=== PATIENT | male | born 1940 | race Two or more races ===

== ENCOUNTER 2018-02-08 10:20 | Outpatient (CLI) | payer OTHER ==
[~2018-02-08 10:20] MED LIST: DOLOGESIC CAPLE1 TAB PO; ZITHROMAX500 MG PO
== END 2018-02-08 10:29 | disposition home or self-care (01) ==
LOC: SONOGRAMA 10:20
DX: E04.1 Nontoxic single thyroid nodule (principal)

== ENCOUNTER → 2018-06-03 | Outpatient (CLI) | payer OTHER | END | disposition home or self-care (01) | LOC: NUCLEAR 07:00 | DX: I20.9 Angina pectoris, unspecified (principal) | CPT/HCPCS: 78452; 93017; A9500 ==

== ENCOUNTER 2020-12-17 10:12 | Outpatient (CLI) | payer OTHER | END 2020-12-17 10:14 | disposition home or self-care (01) | LOC: NUCLEAR 10:12 | PROVIDERS: ATTEND Internal Medicine | DX: I11.9 Hypertensive heart disease without heart failure (principal); S46.201A Unspecified injury of muscle, fascia and tendon of other parts of biceps, right arm, initial encounter; T82.855D Stenosis of coronary artery stent, subsequent encounter ==

== ENCOUNTER 2020-12-27 10:25 | Outpatient (CLI) | payer OTHER | END 2020-12-27 10:29 | disposition home or self-care (01) | LOC: TOM 10:25 | PROVIDERS: ATTEND Internal Medicine | DX: S46.201A Unspecified injury of muscle, fascia and tendon of other parts of biceps, right arm, initial encounter (principal); M25.511 Pain in right shoulder ==

== ENCOUNTER 2022-04-17 13:30 | Outpatient (CLI) | payer OTHER | END 2022-04-17 13:55 | disposition home or self-care (01) | LOC: RAD 13:30 | PROVIDERS: ATTEND Internal Medicine | DX: M15.0 Primary generalized (osteo)arthritis (principal); M54.17 Radiculopathy, lumbosacral region ==

== ENCOUNTER → 2022-10-07 09:13 | Outpatient (CLI) | payer OTHER | END | disposition home or self-care (01) | LOC: LAB 09:13 | PROVIDERS: ATTEND Internal Medicine | DX: D64.9 Anemia, unspecified (principal); E11.9 Type 2 diabetes mellitus without complications; E78.00 Pure hypercholesterolemia, unspecified; N39.0 Urinary tract infection, site not specified; E03.8 Other specified hypothyroidism ==

== ENCOUNTER 2022-10-10 23:05 | Emergency (ER) | payer OTHER ==
[~2022-10-10] VITALS: Ht 154.9 cm; Wt 49.0 kg
== END 2022-10-11 01:50 | disposition home or self-care (01) ==
LOC: ER 23:05
DX: R53.81 Other malaise (principal); R53.1 Weakness

== ENCOUNTER 2022-10-15 08:05 | Outpatient (CLI) | payer OTHER | END 2022-10-15 08:08 | disposition home or self-care (01) | LOC: NUCLEAR 08:05 | PROVIDERS: ATTEND Internal Medicine | DX: R00.2 Palpitations (principal) ==